=== PATIENT | male | born 1990 | race Caucasian/White ===

== ENCOUNTER 2018-09-26 19:58 | Emergency (ER) | payer SELFPAY ==
[2018-09-26 20:30] VITALS: BP 122/65
--- NOTE | 2018-09-26 20:50 | UC ---
Shoulder Pain HPI - HPI Summary HPI Summary: C/O sudden onset severe left shoulder pain after lifting a tote lid at work. Lid weighs 6-7 lbs. - History of Current Complaint Chief Complaint: UCUpperExtremity Stated Complaint: LT SHOULDER PAIN, NUMBNESS Hx Obtained From: Patient Onset/Duration: Sudden Onset, Lasting Hours - 1 1/2, Still Present Timing: Constant Severity Initially: Severe Severity Currently: Severe Pain Intensity: 9 Character: Sharp, Aching, Throbbing, Burning Aggravating Factor(s): Movement Associated Signs And Symptoms: Positive: Numbness/Tingling - down in the left hand from the wrist down. Related History: Occupational Injury, Dominant Hand Right - Allergies/Home Medications Allergies/Adverse Reactions: Allergies Allergy/AdvReac Type Severity Reaction Status Date / Time honey Allergy Swelling Verified 09/26/18 20:23 PMH/Surg Hx/FS Hx/Imm Hx Previously Healthy: Yes - Surgical History Surgical History: None - Family History Known Family History: Positive: Hypertension, Diabetes - Social History Occupation: Employed Full-time Lives: With Family Alcohol Use: None Substance Use Type: None Smoking Status (MU): Current Every Day Smoker Type: Cigarettes Amount Used/How Often: 1 ppd Length of Time of Smoking/Using Tobacco: 10 yrs Have You Smoked in the Last Year: Yes Review of Systems All Other Systems Reviewed And Are Negative: Yes Musculoskeletal: Positive: Arthralgia - left shoulder Neurological: Positive: Numbness - left hand Physical Exam Triage Information Reviewed: Yes Appearance: Well-Appearing, Well-Nourished, Pain Distress - moderate Vital Signs: Initial Vital Signs Temp 98.4 F 09/26/18 20:25 Pulse 81 09/26/18 20:25 Resp 18 09/26/18 20:25 BP 122/65 09/26/18 20:25 Pulse Ox 98 09/26/18 20:25 Vital Signs Reviewed: Yes Eyes: Positive: Conjunctiva Clear Neck exam: Normal Respiratory Exam: Normal Cardiovascular Exam: Normal Musculoskeletal: Positive: ROM Limited @ - unable to move left shoulder away from the chest., Other: - severe tenderness over the distal clavicle/ AC joint and over the shoulder. Neurological: Positive: Other: - decreased pinprick sensation left hand Psychological Exam: Normal Skin Exam: Normal Shoulder Course/Dx - Differential Dx/Diagnosis Differential Diagnosis/HQI/PQRI: AC Separation, Contusion, Rotator Cuff Injury, Sprain, Strain Provider Diagnosis: Left shoulder pain, Neuralgia and neuritis Discharge - Sign-Out/Discharge Documenting (check all that apply): Patient Departure All imaging exams completed and their final reports reviewed: No - Discharge Plan Condition: Stable Disposition: HOME Prescriptions: Gabapentin CAP(*) [Neurontin 300 CAP(*)] 300 mg PO TID #90 cap Patient Education Materials: Shoulder Pain (ED), Paresthesia (ED) Forms: *Work Release Referrals: No Primary Care Phys,NOPCP [Primary Care Provider] - Garry Naranjo MD [Medical Doctor] - 1 Day Additional Instructions: GABAPENTIN: Gabapentin is an anti-seizure medication that is more often used for nerve pain. It helps to stabilize the nerve to stop the pain. Its primary side effect is sedation which will improve over time. Most people will start with only one capsule 1 to 2 hours before bed, but if your pain is more severe you may want to start with one capsule twice a day. If the pain is still an issue after another 1-2days the dose may be increased to a maximum of 1 capsule 3 times a day. Decrease the dose by one capsule a day if there is excessive sedation or it is not working. You can also decrease it to discontinue it if the pain is resolving. - Billing Disposition and Condition Condition: STABLE Disposition: Home
--- NOTE | 2018-09-27 08:30 | ED ---
Progress - Progress Note Progress Note: XRAY Final Read reviewed: NAD. Course/Dx - Diagnoses Provider Diagnoses: Left shoulder pain, Neuralgia and neuritis Discharge - Sign-Out/Discharge Documenting (check all that apply): Patient Departure All imaging exams completed and their final reports reviewed: Yes - Discharge Plan Condition: Stable Disposition: HOME Prescriptions: Gabapentin CAP(*) [Neurontin 300 CAP(*)] 300 mg PO TID #90 cap Patient Education Materials: Paresthesia (ED), Shoulder Pain (ED) Forms: *Work Release Referrals: Garry Naranjo MD [Medical Doctor] - 1 Day No Primary Care Phys,NOPCP [Primary Care Provider] - Additional Instructions: GABAPENTIN: Gabapentin is an anti-seizure medication that is more often used for nerve pain. It helps to stabilize the nerve to stop the pain. Its primary side effect is sedation which will improve over time. Most people will start with only one capsule 1 to 2 hours before bed, but if your pain is more severe you may want to start with one capsule twice a day. If the pain is still an issue after another 1-2days the dose may be increased to a maximum of 1 capsule 3 times a day. Decrease the dose by one capsule a day if there is excessive sedation or it is not working. You can also decrease it to discontinue it if the pain is resolving. - Billing Disposition and Condition Condition: STABLE Disposition: Home
== END 2018-09-26 21:28 | disposition home or self-care (01) ==
LOC: UCCORT 19:58
DX: G58.8 Other specified mononeuropathies (principal); G54.5 Neuralgic amyotrophy; F17.210 Nicotine dependence, cigarettes, uncomplicated
CPT/HCPCS: 99202; G0463